=== PATIENT | female | born 1970 | race Caucasian/White ===

== ENCOUNTER → 2017-03-08 | Outpatient (CLI) | payer OTHER | END | disposition home or self-care (01) | LOC: CDC 14:17 | DX: M48.06 Spinal stenosis, lumbar region (principal); G83.4 Cauda equina syndrome; R94.31 Abnormal electrocardiogram [ECG] [EKG] | CPT/HCPCS: 93000 ==

== ENCOUNTER 2017-03-17 10:59 | Inpatient (IN) | payer OTHER ==
[~2017-03-17] VITALS: Ht 157.5 cm; Wt 147.0 kg
[~2017-03-17 10:59] MED LIST: ACIPHEX20 MG PO; CELEXA40 MG PO; COLACE100 MG PO; DIOVAN80 MG PO; FLEXERIL10 MG PO; MICROZIDE12.5 M1 PO; NEURONTIN600 MG PO; TENCON 50-3251 EACH PO; TOPAMAX50 MG PO; ULTRACET1 TABLET PO; ZOHYDRO ER10 M1 PO
[2017-03-17 11:49] VITALS: BP 165/90
[2017-03-17 19:41] VITALS: BP 154/67
[2017-03-17 23:46] VITALS: BP 127/69
[2017-03-18 03:43] VITALS: BP 132/70
[2017-03-18 07:13] VITALS: BP 114/61
[2017-03-18] MEDS ORDERED: ZOHYDRO ER10 M1 PO (08:08)
== END 2017-03-18 15:10 | disposition home or self-care (01) | DRG 516 ==
LOC: 2SOUTH 10:59 → 3EAST 10:59 → 2SOUTH 12:06 → 3EAST 15:36 → 2SOUTH 03-18 09:26 → 3EAST 03-18 15:10
DX: M48.06 Spinal stenosis, lumbar region (principal); G83.4 Cauda equina syndrome; M71.38 Other bursal cyst, other site; I10 Essential (primary) hypertension; G43.909 Migraine, unspecified, not intractable, without status migrainosus; F41.9 Anxiety disorder, unspecified; E66.01 Morbid (severe) obesity due to excess calories; Z68.43 Body mass index [BMI] 50.0-59.9, adult; D72.829 Elevated white blood cell count, unspecified; K59.03 Drug induced constipation; M62.81 Muscle weakness (generalized)
CPT/HCPCS: 72020; 76000; G0378; J0330; J0690; J1100; J2405; J2710; J2930; J3010; J3370; J3480; S0020